=== PATIENT | female | born 1950 | race Caucasian/White ===

== ENCOUNTER 2016-06-11 13:19 | Inpatient (IN) | payer MEDICARE, BC ==
--- NOTE | ~2016-06-11 | PUL ---
[facility] [address] [place]. [address] NAME: JESUS MARTE : 50 STATUS : DIS IN PAT#: [id number] AGE: 66 ADM/REG DATE : 06/11/16 MR#: [id number] REPORT SERV DATE: 06/17/16 DICTATED BY: NEGRA STARK DATE: 06/17/16 REPORT STATUS : Draft TRANSCRIBED BY: MODL DATE: 06/17/16 PULMONARY FUNCTION TEST OVERNIGHT OXIMETRY REPORT START DATE OF TESTING: END DATE OF TESTIN06/15/2016 COMMENTS: Testing conducted while the patient was breathing room air. RESULTS: Total valid sampling time 1600 hours 15 minutes and 53 seconds. Total time with an oxygen saturation less than 88%, 17 minutes and 2 seconds. Oxygen desaturation event index 8.2. IMPRESSION: There was significant desaturation during this study conducted while the patient was breathing room air. Additionally, the oxygen desaturation event index is suspicious for possible sleep apnea. Recommend supplemental oxygen at a minimum flow rate of 2 L/minute with sleep and a formal sleep study is clinically indicated. PS/HUMBLE Negra Stark M.D. / [id number] CC: Vannessa Pelletier REBECCA ANN
--- NOTE | ~2016-06-11 | DS ---
Discharge Summary [facility] [address] [place]. [address] NAME: JESUS MARTE : 50 STATUS : DIS IN PAT#: [id number] AGE: 66 ADM/REG DATE : 06/11/16 MR#: [id number] REPORT SERV DATE: 06/17/16 DICTATED BY: JASVIR RUBIN DATE: 06/17/16 REPORT STATUS : Draft TRANSCRIBED BY: HUMBLE DATE: 06/17/16 ADMISSION DATE: 06/11/2016 DISCHARGE DATE: 06/17/2016 History of present illness per dictation of Dr. Bennett on 06/11/2016. Also please refer to the dictation of critical care physician Dr. Callaway on 06/11/2016. Please also refer to interim discharge summary dictated by Dr. Raji Yeung on 06/14/2016. I personally started to see this patient on 06/15/2016 when she was transferred from the intensive care unit to the floor. DIAGNOSES ON DISCHARGE: 1. Hypotension present on admission, resolved with IV fluid hydration and short term Levophed. 2. Clinical adrenal insufficiency, currently resolved once her prednisone was restarted. 3. Ulcerative colitis with predominantly proctitis pattern. 4. Hypercholesterolemia, stable. 5. Over replaced hypothyroidism, levothyroxine dose decreased to 75 mcg a day. 6. Hypokalemia, corrected and replaced. 7. Antibiotic associated diarrhea, resolved after antibiotic course completed. 8. History of obstructive sleep apnea, may need outpatient sleep study. Attending seeing this patient during hospitalization, Dr. Bennett; critical care attendings, Dr. Callaway and Dr. Yeung as well as consultants range ecologist, Dr. Yi Celis. HOSPITAL COURSE: Briefly, for the hospital course before 06/15/2016, please refer to interim discharge summary dictated by Dr. Yeung. For the last three days that I saw the patient starting 06/15/2016, she was doing very well on the floor. I tapered her intravenous hydrocortisone and she was started on oral prednisone. She is doing well and her blood pressure was very stable in the normal range. I checked also her blood pressure on standing and it was 120/68, 131/72. She does not have any dizziness. Her diarrhea resolved. She recommended a slow tapering course of prednisone per Dr. Celis. She does not need antibiotics anymore since she completed seven days of Levaquin and Flagyl per recommendation of Dr. Celis. She was recommended to be discharged today and follow up with range ecologist, Dr. Celis in one week. Over replaced hypothyroidism. We recommended to decrease her Synthroid dose to 75 mcg a day and check her TSH in four weeks per her primary care physician, Veronica Farris. The patient doing very well. The patient was discharged in a stable condition. DISCHARGE MEDICATIONS: Lipitor 40 mg daily, Imuran 100 mg daily, ranitidine 30 mg daily, levothyroxine dose decreased to 75 mcg daily, prescription given. Check TSH in four weeks per Dr. Farris. The patient to stop lisinopril and hydrochlorothiazide since she does not Discharge Summary [address] [address] NAME: JESUS MARTE : 50 STATUS : DIS IN PAT#: [id number] AGE: 66 ADM/REG DATE : 06/11/16 MR#: [id number] REPORT SERV DATE: 06/17/16 DICTATED BY: JASVIR RUBIN DATE: 06/17/16 REPORT STATUS : Draft TRANSCRIBED BY: HUMBLE DATE: 06/17/16 need this medicine, now her blood pressure currently in normal range. She can restart it if systolic blood pressure more than 140. Continue balsalazide at a dose of 2250 mg p.o. three times a day, vitamin E 400 units daily, vitamin D3 daily, vitamin B12 of 2500 mcg sublingually, prednisone slow tapering course, prednisone 40 mg daily for one week, then 35 mg p.o. daily for one week, then 30 mg p.o. daily for one week, then 25 mg p.o. daily for one week, then 20 mg p.o. daily for one week, then 15 mg p.o. daily for one week, then 10 mg p.o. daily for one week, and then 5 mg p.o. daily for one week. Prescription given to the patient and then she needs to stop after she will complete five week course of prednisone. It was explained that she should not stop her prednisone abruptly. She have to complete five days tapering course to avoid hypotension. I spent 45 minutes on discharge. The patient was discharged in stable condition. MG/MODL Jasvir Rubin M.D. / [id number] CC: Vannessa Pelletier Rebecca Ann Camille Sommer, MD
--- NOTE | ~2016-06-11 | HP ---
History And Physical [place] [address] [place]. [address] NAME: JESUS MARTE : 50 STATUS : ADM IN [facility]#: [id number] AGE: 66 ADM/REG DATE : 06/11/16 MR#: [id number] REPORT SERV DATE: 06/12/16 DICTATED BY: MISTY BUCK DATE: 06/12/16 REPORT STATUS : Draft TRANSCRIBED BY: MODMatt DATE: 06/12/16 DATE OF ADMISSION: 06/11/2016 TIME: 0336 hours. Ms. Wallace has arrived from the ER, where she spent the last eight to nine hours. HISTORY OF PRESENT ILLNESS: She is a 66-year-old white female with a history of ulcerative colitis of one year's duration, diagnosed by colonoscopy by a GI physician at [place]. She presents tonight into the ER today with a history of being very weak for several weeks to the point where she felt she could not stand up without getting dizzy. On entry to the ER on examination, she is found to be somewhat hypotensive and thought to be dehydrated. She was given 2 to 3 L of saline with some improvement but required Levophed for maintenance of blood pressure. According to the patient, she had been on a prednisone taper for about a month. Tapering down stopped several weeks ago. Since that time, she has felt extremely weak. She denies having any significant diarrhea, nausea, or vomiting. No increased diuresis. PAST MEDICAL HISTORY: Significant for the onset of the colitis. She has a history of thyroid disease. She has been taking immunosuppressants for her colitis, Imuran and prednisone. She does not smoke or drink, and she does have a history of hypertension, for which she takes medications. FAMILY HISTORY: Negative for any colon problems in the family. She lives with her significant other. She has a sister. No children. Not . ALLERGIES: NO KNOWN DRUG ALLERGIES. MEDICATIONS: Home medications include Synthroid 100 mcg p.o. daily, Imuran 50 mg tablet 100 mg once a day, Zantac 300 mg p.o. at bedtime, Lipitor 40 daily, balsalazide 2250 mg p.o. three times a day, vitamin E, vitamin D3, and vitamin B12. REVIEW OF SYSTEMS: Otherwise negative and noncontributory. PHYSICAL EXAMINATION: GENERAL: The patient is awake, alert, and oriented at this time, VITAL SIGNS: Blood pressure was 117/59, on Levophed; pulse 96; sat 98%; afebrile. HEENT: Head is normocephalic. Sclerae and conjunctivae clear. NECK: Supple. Good upstroke. No bruits. CHEST: Clear to auscultation and percussion. No wheezing or rhonchi. CARDIAC: S1 and S2. No murmurs or gallops. ABDOMEN: Scaphoid, nontender. No masses or organomegaly. EXTREMITIES: No clubbing, cyanosis, or edema. Pulses palpable. NEUROLOGIC: Cranial nerves II through XII are intact. Deep tendon reflexes normal. Strength now appears to be relatively normal. No evidence of arthritis. History And Physical [address] [address] NAME: JESUS MARTE : 50 STATUS : ADM IN [facility]#: [id number] AGE: 66 ADM/REG DATE : 06/11/16 MR#: [id number] REPORT SERV DATE: 06/12/16 DICTATED BY: MISTY BUCK DATE: 06/12/16 REPORT STATUS : Draft TRANSCRIBED BY: HUMBLE DATE: 06/12/16 LABORATORY DATA: Shows the following: Her CMP done on entry to the ER at 12 o'clock noon time, procalcitonin was 1.07, sodium 136, potassium 3.3, chloride 96, CO2 of 30, BUN 26, creatinine 1.84, glucose 168. Calcium 8.3, total protein 6.7, albumin 2.9, globulin 3.8, total bilirubin 0.6, alkaline phosphatase 61, ALT 10, AST 12. Lipase 66. Troponin less than 0.02. CBC showed an H and H of 10.3 and 30.6, white count 6700, platelet count 316,000. Serum lactate 1.9. Again, this is at noon time at 3:20. Urinalysis was basically negative. The patient was placed on antibiotics. She was started Levaquin 750 IV q.48, Flagyl 500 mg IV q.8 hours. IMPRESSION: 1. Weakness and hypotension, probably related to both relative adrenal insufficiency and dehydration. 2. Mild acute kidney injury. 3. Elevated procalcitonin, etiology unclear. PLAN: We will continue antibiotic therapy. Continue IV fluid therapy. Switch to normal saline. Repeat procalcitonin level. Consider use of Solu-Cortef if hypotension persists or difficulty getting off Levophed. The CT scan results that were done showed that gallstone could not be evaluated due to helical contrast. Findings were nonspecific ileus without definitive evidence for bowel obstruction. There was mild thickening of distal rectal wall with fluid in the distal sigmoid, associated nonspecific inflammatory infectious colitis not completely excluded. No findings to suggest acute appendicitis. The lung bases with mild patchy area of segmental atelectatic changes in both lower lobes. Pancreas unremarkable. Spleen unremarkable. Adrenals unremarkable. Kidneys and ureters were unremarkable. Bladder unremarkable as was the reproductive system. We will trend along with the antibiotics. We will check stools for C. diff, and we will also consult GI. MAGALI/HUMBLE Misty Buck M.D. / [id number]
--- NOTE | ~2016-06-11 | HP ---
History And Physical [place] [id number] [facility] [place]. [address] NAME: JESUS MARTE : 50 STATUS : ADM IN PAT#: [id number] AGE: 66 ADM/REG DATE : 06/11/16 MR#: [id number] REPORT SERV DATE: 06/11/16 DICTATED BY: BRADLEY FARIAS DATE: 06/11/16 REPORT STATUS : Draft TRANSCRIBED BY: MODL DATE: 06/11/16 DATE OF ADMISSION: 06/11/2016 HISTORY OF PRESENT ILLNESS: Ms Marte is a 66-year-old female patient with a history of ulcerative colitis for which she follows up with Dr. Vasquez, who is the [facility] doctor. The patient essentially came in today to the ER because she was feeling extremely weak and could hardly stand for the last three to five days. The patient states that she has actually been feeling weak for the last several weeks, but in the last three to five days, she was so weak that she was hardly able to stand and she decided to come into the ER. The patient states that she has chronically loose bowel movements and has about three to four of them every day for the last several months. Other than that, the patient did not experience any episode of acute watery diarrhea or did not experience any bleeding in stool. The patient did have an episode of nausea and vomiting yesterday, but that was just one time. Surprisingly, she denies any abdominal pain. She denies any headaches, blurry vision, fever, chest pain, or cough. She denies any abdominal pain or any further episodes of nausea or vomiting. She denies any blood in stool currently. She denies any dysuria or hematuria. There are no joint pains. REVIEW OF SYSTEMS: Other than above, negative for all systems. Essentially, she just came in for extreme weakness, which was so severe that she could hardly stand. PAST MEDICAL HISTORY: Significant for hypertension and severe ulcerative colitis for which she follows up with her GI doctor at [facility]. The patient states that she has been on medications for ulcerative colitis and this includes an immunosuppressant medicine, Imuran. SOCIAL HISTORY: The patient does not smoke or drink or do any illicit drugs. The patient states that she is not currently and she does not have any children. She lives with a significant other. Her sister who is at bedside lives close by. FAMILY HISTORY: Negative for any colon problems in the family. MEDICATIONS AND ALLERGIES: Medications and allergies at home include the following: Allergies: There are no known drug allergies. Home medications include Prinzide 10/12.5 mg one tablet once a day, Synthroid 100 mcg once a day, Imuran 50 mg tablet 100 mg once a day, Zantac 300 mg p.o. q.h.s., Lipitor 40 mg p.o. daily, balsalazide 2250 mg p.o. three times a day, vitamin E, vitamin D3, and also vitamin B12. PHYSICAL EXAMINATION: GENERAL: On examination, the patient is alert, oriented, appears very weak, but is able to answer all her questions herself. When I spoke with the ER physician, he told me that when she came in, her blood pressure was extremely low in the 70s/40s. She was given 2 liters of normal saline, but despite that her History And Physical [address] [address] NAME: JESUS MARTE : 50 STATUS : ADM IN [facility]#: [id number] AGE: 66 ADM/REG DATE : 06/11/16 MR#: [id number] REPORT SERV DATE: 06/11/16 DICTATED BY: BRADLEY FARIAS DATE: 06/11/16 REPORT STATUS : Draft TRANSCRIBED BY: HUMBLE DATE: 06/11/16 blood pressure stayed low in the 80s/40s. At that point, the ER physician, Dr. Bernstein, contacted Dr. Dailey, the ICU physician, and the advice of Dr. Dailey was for the patient to be given more fluids, but however, get a PICC line in case she would need Levophed for blood pressure support. Hence, the patient also now has a PICC line in place. But luckily, she did not need any Levophed and just with fluids and also more than fluids, with just one dose of Solu-Cortef that the patient received in the ER, her blood pressures come back up in the low 100s/60s. However, the patient is tachycardic with her heart rate anywhere between 110 to 120 per minute. As mentioned above, she appears weak and dehydrated, and however, is oriented and able to answer all questions herself. VITAL SIGNS: At this time when I examined the patient shows a blood pressure of 110/66. The patient is afebrile. Pulse is anywhere from 110 to 115 per minute and O2 sats 95% on 2 liters of oxygen per nasal cannula. The patient is afebrile. HEENT: Unremarkable. Skin and mucous membranes appear dehydrated. NECK: There is no JVD. There is no thyromegaly. CARDIOVASCULAR SYSTEM: S1 and S2 appreciated. Tachycardia noted. No murmurs, rubs, or gallops noted. RESPIRATORY SYSTEM: Clear lungs. No rales or rhonchi noted. ABDOMEN: Soft and completely nontender. No guarding. No rigidity. Bowel sounds appreciated. No organomegaly noted. EXTREMITIES: There is no pedal edema. Pedal pulses are well felt. NEUROLOGICAL: Normal. MUSCULOSKELETAL: Normal. PSYCHIATRIC: Normal. LABORATORY DATA: Labs show a CBC count that shows WBC of 6.7, hemoglobin 10.3, hematocrit of 30.6, and platelet count of 316. Her comprehensive metabolic profile shows sodium 136, potassium 3.3, BUN 26, and creatinine 1.8. LFTs are essentially normal. Lipase is low at 66. Troponin I is normal. Procalcitonin is elevated at 1.07. Lactate level, however, is 1.9. Urinalysis shows hazy urine, moderate amount of leukocyte esterase, and few bacteria. ASSESSMENT: My assessment on this patient is: 1. Hypotension - blood pressure is still somewhat on the lower side despite 2 liters of fluids and Solu-Cortef. Hence, start the patient on continuous IV Ringer's lactate at 125 mL an hour for 24 more hours still the patient is assessed by the oncoming physician. 2. The patient, however, has a PICC line and is at a low threshold for starting Levophed if needed. 3. Sepsis - at this time, the likely source is the colon. I do not have a CT scan report of the abdomen at this time on this patient, hence, we will order CT scan of the abdomen and pelvis to evaluate for acute infectious/other forms of colitis. We will start empirically on IV Levaquin and Flagyl on this patient. 4. Acute kidney injury with a creatinine of 1.8, this is probably from dehydration, hence, History And Physical [address] [place]. [address] NAME: JESUS MARTE : 50 STATUS : ADM IN PAT#: [id number] AGE: 66 ADM/REG DATE : 06/11/16 MR#: [id number] REPORT SERV DATE: 06/11/16 DICTATED BY: BRADLEY FARIAS DATE: 06/11/16 REPORT STATUS : Draft TRANSCRIBED BY: MODMatt DATE: 06/11/16 we will monitor kidney function after giving her Ringer lactate. However, we will hold her blood pressure medicine and Lipitor that she takes at home. 5. Chronic immunosuppressed status as she is on immunosuppressant medications for her ulcerative colitis - we will hold all these medications for at least 24 to 48 more hours until she is assessed by our GI specialist here. So, we will get a GI consult for the patient to be seen in a.m. 6. We will send off for stool studies and these will include stool for Clostridium difficile, stool ova and parasites, stool culture and also stool for Hemoccult. 7. Like I mentioned above, all her home medications will be held at least for 24 to 48 more hours for now until we have more information about her condition and until we are able to jean in more definitive diagnosis on this patient. For now, we will admit this patient to IM as her condition is guarded. JACKLYNA/HUMBLE Bradley Farias M.D. / [id number] CC: Vannessa Ball REBECCA ANN
--- NOTE | ~2016-06-11 | IDS ---
Interim Discharge Summary [facility] [address] [place]. [address] NAME: JESUS MARTE : 50 STATUS : ADM IN PAT#: [id number] AGE: 66 ADM/REG DATE : 06/11/16 MR#: [id number] REPORT SERV DATE: 06/14/16 DICTATED BY: MARY BETH YEUNG IV DATE: 06/14/16 REPORT STATUS : Draft TRANSCRIBED BY: MODMatt DATE: 06/14/16 ADMISSION DATE: 06/11/2016 DISCHARGE DATE: DATE OF TRANSFER: To the floor is 06/14/2016. ADMITTING DIAGNOSES: 1. Hypotension transiently requiring Levophed. 2. Clinical adrenal insufficiency. 3. Ulcerative colitis with predominantly proctitis. 4. Elevated cholesterol. 5. Hypothyroidism, over replaced. 6. Electrolyte abnormalities being corrected. 7. Clinical obstructive sleep apnea. 8. Outpatient hypertension. CONSULTANTS: Dr. Celis of Gastroenterology who continued to follow the patient. PROCEDURES: The patient had a PICC line placed and had an echocardiogram demonstrating normal left ventricular function with no valvular abnormalities. Abdominal CT scan demonstrating some fixation of the rectum consistent with proctitis noted on abdominal CT scan and that was performed on the . MEDICATIONS: Colazal 2250 mg three times a day, Flagyl 500 mg q.8 hours, heparin 5000 units q.12 hours, Levaquin 750 mg daily, Lipitor 40 mg daily, Pepcid 20 mg twice a day, Solu- Cortef 50 mg three times a day, Synthroid 75 mcg daily, multivitamin daily, thiamine 100 mg daily, and melatonin 3 mg at nighttime. HOSPITAL COURSE: The patient was admitted by the Hospitalist Service on 06/11/2016. Because of hypotension despite fluids, the patient was referred to the Critical Care Service and admitted to CCU. The patient required Levophed at low doses to maintain a mean arterial pressure greater than 65. The patient had been on a five-week course of steroids, which was discontinued at 10 mg. The cortisol level was 13, however, when the patient was placed on hydrocortisone 75 mg three times a day, the patient had improvement of her blood pressure and allowed discontinuation of Levophed within hours. The patient had a suppressed TSH and an elevated free T4 for which her Synthroid dose was decreased from 100 mcg to 75 mcg and will need to have a repeat level obtained in four weeks. She had electrolyte abnormalities, which have been corrected and will be repeated again tomorrow. The patient has nocturnal hypoxemia with symptoms consistent with obstructive sleep apnea to include snoring, awakening herself gasping for air, nonrestorative sleep, and sedentary hypersomnolence for which she should have an outpatient sleep evaluation. An overnight oximetry will be obtained while she is in the hospital. The patient had abdominal CT scan demonstrating the proctitis for which she is on Flagyl and Levaquin with a drop in the procalcitonin level. This is going to be continued for now. Interim Discharge Summary [place] [id number] [facility] [place]. [address] NAME: JESUS MARTE : 50 STATUS : ADM IN [facility]#: [id number] AGE: 66 ADM/REG DATE : 06/11/16 MR#: [id number] REPORT SERV DATE: 06/14/16 DICTATED BY: MARY BETH YEUNG IV DATE: 06/14/16 REPORT STATUS : Draft TRANSCRIBED BY: HUMBLE DATE: 06/14/16 The patient was re-initiated on some of her ulcerative colitis medications with further recommendations per Dr. Celis. It was felt that she was stable for transfer to the floor and back to the Hospitalist Service. LOTUS/HUMBLE Mary Beth Yeung IV, M.D. / [id number] CC: Cristine Monte M.D.
--- NOTE | ~2016-06-11 | CN ---
Consultation Report [facility] [address] [place]. [address] NAME: JESUS MARTE : 50 STATUS : ADM IN PAT#: [id number] AGE: 66 ADM/REG DATE : 06/11/16 MR#: [id number] REPORT SERV DATE: 06/13/16 DICTATED BY: RICK CELIS DATE: 06/13/16 REPORT STATUS : Draft TRANSCRIBED BY: MODL DATE: 06/13/16 GI CONSULTATION DATE OF CONSULTATION: 06/12/2016 REASON FOR CONSULTATION: Ulcerative colitis. HISTORY OF PRESENT ILLNESS: Ms. Marte is a 66-year-old, white female, who follows with Dr. Woodruff for presumed ulcerative colitis. She believes that it is distal/proctitis. She reports that she has had difficulty getting into remission and has tried numerous 5-ASA formulations and was recently started on Imuran 100 mg daily a month ago. She has also recently been on balsalazide and completed her steroid taper this past Saturday. Regarding her steroid taper, she believes that her schedule was four 5 mg tablets daily for two weeks, three 15 mg daily for one week, 10 mg daily for one week, and then 5 mg daily for the following week, the last week. Again, this was completed [address] scan performed here showed some mild thickening in the distal rectum with some fluid of unclear significance. No obstruction was seen. She also had a gallstone and nonspecific ileus. No significant bowel wall thickening or stranding elsewhere. No evidence of acute pancreatitis. Pancreas and spleen appeared normal. No ESR, CRP had been performed. She did test negative for C. diff and was started on Levaquin and Flagyl for presumed flare and possible UTI. PAST MEDICAL HISTORY: Ulcerative colitis. FAMILY HISTORY: Noncontributory. SOCIAL HISTORY: No smoking, alcohol, or drug use. ALLERGIES: NO KNOWN DRUG ALLERGIES. MEDICATIONS: Reviewed. PHYSICAL EXAMINATION: Patient is afebrile. Vital signs, reviewed. She has been hypotensive and has been on Levophed to maintain her blood pressure. However, her dizziness and fatigue have improved since her hospitalization. Because she was on Levophed, she has been required to stay in the CCU for pressor support. No other hemodynamic instability, however. HEENT: Atraumatic, normocephalic. Anicteric. Mucous membranes moist. CARDIAC: S1, S2. CHEST: Clear to auscultation. ABDOMEN: Soft. Minimal tenderness to suprapubic area but no rebound or guarding. Bowel sounds are normoactive. LABORATORY DATA: WBC 5.6, hemoglobin 8.5, hematocrit 25.1, platelets 268. Sodium 142, Consultation Report [facility] [address] [place]. [address] NAME: JESUS MARTE : 50 STATUS : ADM IN PAT#: [id number] AGE: 66 ADM/REG DATE : 06/11/16 MR#: [id number] REPORT SERV DATE: 06/13/16 DICTATED BY: RICK CELIS DATE: 06/13/16 REPORT STATUS : Draft TRANSCRIBED BY: HUMBLE DATE: 06/13/16 potassium 3.2, chloride 105, bicarb 28, BUN 18, creatinine 0.7, glucose 132. Liver enzymes normal. ESR, CRP pending. IMPRESSION AND PLAN: Ulcerative colitis, unclear if currently having a flare up. She has had chronic diarrhea consisting of three to four soft bowel movements daily over the past several months but has recently seen Dr. Edwards for this and has just completed a steroid taper. She denies any bleeding. No abdominal pain. No nausea or vomiting. She may have this persistent hypotension due to her steroid taper. We will check a cortisol level in the morning. I will also check an ESR, CRP, and faecal calprotectin to further evaluate any active inflammation. Continue antibiotics. We will continue to follow with you. LAURA/HUMBLE Rick Celis MD / [id number] CC: Vannessa Ball
[2016-06-11 12:51] LABS: BASOPHILS 0.1 %; BASOPHILS ABSOLUTE 0.01 10/3/uL (0.0-0.16); EOSINOPHILS 0.4 %; EOSINOPHILS ABSOLUTE 0.03 10/3/uL (0.0-0.53); IMMATURE GRANULOCYTES 0.7 %; IMMATURE GRANULOCYTES ABSOLUTE 0.05 10/3/uL (0.0-0.11); LYMPHOCYTES 13.2 %; LYMPHOCYTES ABSOLUTE 0.89 10/3/uL (0.67-4.30); MEAN CORPUS HGB CONC 33.7 g/dL (32.0-36.0); MEAN CORPUSCULAR HEMOGLOB 29.6 pg (26.0-34.0); MEAN PLATELET VOLUME 9.3 fL (9.2-13.0); MONOCYTES 8.5 %; MONOCYTES ABSOLUTE 0.57 10/3/uL (0.21-1.20); NEUTROPHILS 77.1 %; NEUTROPHILS ABSOLUTE 5.17 10/3/uL (2.02-8.40); RED CELL COUNT 3.48 10/6/uL (4.0-5.6)
[2016-06-11 12:52] LABS: ER CBC TAT 0 Hrs 05 Mins; HEMATOCRIT 30.6 % (36.0-48.0); HEMOGLOBIN 10.3 g/dL (12.0-16.0); MANUAL DIFF NO %; MEAN CORPUSCULAR VOLUME 87.9 fL (80-100); PLATELET COUNT 316 10/3/uL (150-400); RBC DISTRIBUTION WIDTH 19.8 % (12.0-16.0); WHITE BLOOD CELLS 6.7 10/3/uL (4.5-10.5)
[2016-06-11 13:06] LABS: A/G RATIO 0.8 (0.7-1.9); ALBUMIN 2.9 G/DL (3.5-5.0); ALKALINE PHOSPHATASE 61 U/L (45-117); CALCIUM, SERUM 8.3 MG/DL (8.5-10.4); CHLORIDE, SERUM 96 MMOL/L (96-112); CO2 (CARBON DIOXIDE) 30 MMOL/L (24-34); GLOBULIN 3.8 G/DL (2.5-4.1); POTASSIUM, SERUM 3.3 MMOL/L (3.5-5.3); SGOT(AST) 12 U/L (5-40); SGPT(ALT) 10 U/L (5-65); SODIUM, SERUM 136 MMOL/L (135-148); TOTAL BILIRUBIN 0.6 MG/DL (0-1.2); TOTAL PROTEIN 6.7 G/DL (6.0-8.5); TROPONIN I <0.02 NG/ML (<0.05)
[2016-06-11 13:07] LABS: BUN (BLOOD UREA NITROGEN) 26 MG/DL (6-23); CREATININE 1.84 MG/DL (0.55-1.02); GFR AFRICAN AMERICAN 33 ML/MIN (>=60); GFR NON AFRICAN AMERICAN 28 ML/MIN (>=60); GLUCOSE, SERUM 168 MG/DL (60-99)
[2016-06-11 13:08] LABS: LACTATE 1.9 MMOL/L (0.3-2.4)
[2016-06-11] MEDS ORDERED: PRINZIDE1 TAB PO (13:53)
[2016-06-11] MEDS ORDERED: SYN075 PO (13:53)
[2016-06-11] MEDS ORDERED: LIPITOR40 PO (13:54)
[2016-06-11] MEDS ORDERED: IMU PO (13:54)
[2016-06-11] MEDS ORDERED: ZANTAC300 MG PO (13:54)
[2016-06-11] MEDS ORDERED: BALSALAZIDE750 MG PO (13:55)
[2016-06-11] MEDS ORDERED: VITE PO (13:56)
[2016-06-11] MEDS ORDERED: VITAMIN D3 PO (13:57)
[2016-06-11] MEDS ORDERED: VITAMIN B-122500 MCG SL (13:58)
[2016-06-11 15:35] LABS: PROCALCITONIN 1.07 ng/mL (<0.5)
[2016-06-11 15:47] LABS: ASCORBIC ACID (UR NOT ORDER) NEG (NEG); BILIRUBIN, URINE NEGATIVE (NEG); KETONE, URINE NEGATIVE (NEG); LEUKOCYTE ESTERASE(NOT OR MOD (NEG); NITRITE (URINE) NEG (NEG); WBC (NOT ORDERED) (RFLEX) 3 (0-5)
[2016-06-11 22:17] LABS: ASCORBIC ACID (UR NOT ORDER) NEG (NEG); BILIRUBIN, URINE NEGATIVE (NEG); ER URINALYSIS TAT 0 Hrs 10 Mins; KETONE, URINE NEGATIVE (NEG); LEUKOCYTE ESTERASE(NOT OR NEG (NEG); NITRITE (URINE) NEG (NEG); WBC (NOT ORDERED) (RFLEX) 2 (0-5)
[2016-06-12 04:59] LABS: BASOPHILS 0 %; EOSINOPHILS 0 %; ER CBC TAT 0 Hrs 08 Mins; HEMOGLOBIN 8.5 g/dL (12.0-16.0); IMMATURE GRANULOCYTES 0.5 %; IMMATURE GRANULOCYTES ABSOLUTE 0.03 10/3/uL (0.0-0.11); LYMPHOCYTES 11.3 %; LYMPHOCYTES ABSOLUTE 0.63 10/3/uL (0.67-4.30); MEAN CORPUS HGB CONC 33.9 g/dL (32.0-36.0); MEAN CORPUSCULAR HEMOGLOB 29.7 pg (26.0-34.0); MEAN CORPUSCULAR VOLUME 87.8 fL (80-100); MEAN PLATELET VOLUME 9.2 fL (9.2-13.0); MONOCYTES ABSOLUTE 0.28 10/3/uL (0.21-1.20); NEUTROPHILS 83.2 %; NEUTROPHILS ABSOLUTE 4.65 10/3/uL (2.02-8.40); PLATELET COUNT 268 10/3/uL (150-400); RBC DISTRIBUTION WIDTH 19.4 % (12.0-16.0); RED CELL COUNT 2.86 10/6/uL (4.0-5.6); WHITE BLOOD CELLS 5.6 10/3/uL (4.5-10.5)
[2016-06-12 05:09] LABS: HEMATOCRIT 25.1 % (36.0-48.0); MANUAL DIFF NO %
[2016-06-12 05:12] LABS: CHLORIDE, SERUM 105 MMOL/L (96-112); CO2 (CARBON DIOXIDE) 28 MMOL/L (24-34); POTASSIUM, SERUM 3.2 MMOL/L (3.5-5.3); SODIUM, SERUM 142 MMOL/L (135-148)
[2016-06-12 05:13] LABS: BUN (BLOOD UREA NITROGEN) 18 MG/DL (6-23); CALCIUM, SERUM 7.3 MG/DL (8.5-10.4); GFR AFRICAN AMERICAN 105 ML/MIN (>=60); GFR NON AFRICAN AMERICAN 90 ML/MIN (>=60); GLUCOSE, SERUM 133 MG/DL (60-99)
[2016-06-12 05:53] LABS: PROCALCITONIN 0.25 ng/mL (<0.5)
[2016-06-12 10:08] LABS: FREE T4 1.82 NG/DL (0.76-1.46); ULTRASENSITIVE TSH 0.025 MCIU/ML (0.358-3.740)
[2016-06-13 04:59] LABS: BASOPHILS 0.3 %; BASOPHILS ABSOLUTE 0.01 10/3/uL (0.0-0.16); EOSINOPHILS 1.8 %; EOSINOPHILS ABSOLUTE 0.06 10/3/uL (0.0-0.53); HEMATOCRIT 24.9 % (36.0-48.0); HEMOGLOBIN 8.1 g/dL (12.0-16.0); IMMATURE GRANULOCYTES 0.6 %; IMMATURE GRANULOCYTES ABSOLUTE 0.02 10/3/uL (0.0-0.11); LYMPHOCYTES 31.6 %; LYMPHOCYTES ABSOLUTE 1.08 10/3/uL (0.67-4.30); MANUAL DIFF NO %; MEAN CORPUS HGB CONC 32.5 g/dL (32.0-36.0); MEAN CORPUSCULAR HEMOGLOB 29.1 pg (26.0-34.0); MEAN CORPUSCULAR VOLUME 89.6 fL (80-100); MEAN PLATELET VOLUME 9.3 fL (9.2-13.0); MONOCYTES 7.9 %; MONOCYTES ABSOLUTE 0.27 10/3/uL (0.21-1.20); NEUTROPHILS 57.8 %; NEUTROPHILS ABSOLUTE 1.98 10/3/uL (2.02-8.40); PLATELET COUNT 221 10/3/uL (150-400); RBC DISTRIBUTION WIDTH 19.6 % (12.0-16.0); RED CELL COUNT 2.78 10/6/uL (4.0-5.6); WHITE BLOOD CELLS 3.4 10/3/uL (4.5-10.5)
[2016-06-13 05:30] LABS: C-REACTIVE PROTEIN ULTRAQUANT 45.7 MG/L (<3.0); CALCIUM, SERUM 7.6 MG/DL (8.5-10.4); CHLORIDE, SERUM 111 MMOL/L (96-112); CO2 (CARBON DIOXIDE) 27 MMOL/L (24-34); CREATININE 0.51 MG/DL (0.55-1.02); GFR AFRICAN AMERICAN 116 ML/MIN (>=60); GFR NON AFRICAN AMERICAN 100 ML/MIN (>=60); GLUCOSE, SERUM 107 MG/DL (60-99); PHOSPHORUS, SERUM 1.9 MG/DL (2.5-4.5); SODIUM, SERUM 146 MMOL/L (135-148)
[2016-06-13 05:36] LABS: BUN (BLOOD UREA NITROGEN) 7 MG/DL (6-23); POTASSIUM, SERUM 3.9 MMOL/L (3.5-5.3)
[2016-06-13 05:37] LABS: SED RATE 43 MM/HR (0-20)
[2016-06-14 04:07] LABS: BASOPHILS 0 %; EOSINOPHILS 0 %; HEMATOCRIT 25.1 % (36.0-48.0); HEMOGLOBIN 8.3 g/dL (12.0-16.0); IMMATURE GRANULOCYTES 0.6 %; IMMATURE GRANULOCYTES ABSOLUTE 0.02 10/3/uL (0.0-0.11); LYMPHOCYTES 18.2 %; LYMPHOCYTES ABSOLUTE 0.57 10/3/uL (0.67-4.30); MEAN CORPUS HGB CONC 33.1 g/dL (32.0-36.0); MEAN CORPUSCULAR HEMOGLOB 29.7 pg (26.0-34.0); MEAN PLATELET VOLUME 9.6 fL (9.2-13.0); MONOCYTES 5.1 %; MONOCYTES ABSOLUTE 0.16 10/3/uL (0.21-1.20); NEUTROPHILS 76.1 %; NEUTROPHILS ABSOLUTE 2.39 10/3/uL (2.02-8.40); PLATELET COUNT 233 10/3/uL (150-400); RBC DISTRIBUTION WIDTH 19.8 % (12.0-16.0); RED CELL COUNT 2.79 10/6/uL (4.0-5.6); WHITE BLOOD CELLS 3.1 10/3/uL (4.5-10.5)
[2016-06-14 04:08] LABS: MANUAL DIFF NO %
[2016-06-14 04:22] LABS: BUN (BLOOD UREA NITROGEN) 10 MG/DL (6-23); CALCIUM, SERUM 7.9 MG/DL (8.5-10.4); CHLORIDE, SERUM 109 MMOL/L (96-112); CO2 (CARBON DIOXIDE) 29 MMOL/L (24-34); CREATININE 0.52 MG/DL (0.55-1.02); GFR AFRICAN AMERICAN 115 ML/MIN (>=60); GFR NON AFRICAN AMERICAN 100 ML/MIN (>=60); POTASSIUM, SERUM 3.4 MMOL/L (3.5-5.3); SODIUM, SERUM 144 MMOL/L (135-148)
[2016-06-14 04:24] LABS: ALBUMIN 2.1 G/DL (3.5-5.0); GLUCOSE, SERUM 135 MG/DL (60-99); PHOSPHORUS, SERUM 2.8 MG/DL (2.5-4.5)
[2016-06-15 04:51] LABS: BASOPHILS 0 %; EOSINOPHILS 0 %; HEMATOCRIT 23.9 % (36.0-48.0); IMMATURE GRANULOCYTES 0.5 %; IMMATURE GRANULOCYTES ABSOLUTE 0.02 10/3/uL (0.0-0.11); LYMPHOCYTES 15.9 %; LYMPHOCYTES ABSOLUTE 0.67 10/3/uL (0.67-4.30); MEAN CORPUS HGB CONC 33.5 g/dL (32.0-36.0); MEAN CORPUSCULAR HEMOGLOB 30.3 pg (26.0-34.0); MEAN CORPUSCULAR VOLUME 90.5 fL (80-100); MEAN PLATELET VOLUME 9.5 fL (9.2-13.0); MONOCYTES 5.5 %; MONOCYTES ABSOLUTE 0.23 10/3/uL (0.21-1.20); NEUTROPHILS 78.1 %; NEUTROPHILS ABSOLUTE 3.29 10/3/uL (2.02-8.40); PLATELET COUNT 241 10/3/uL (150-400); RBC DISTRIBUTION WIDTH 20.3 % (12.0-16.0); RED CELL COUNT 2.64 10/6/uL (4.0-5.6); WHITE BLOOD CELLS 4.2 10/3/uL (4.5-10.5)
[2016-06-15 04:54] LABS: MANUAL DIFF NO %
[2016-06-15 05:10] LABS: BUN (BLOOD UREA NITROGEN) 10 MG/DL (6-23); CALCIUM, SERUM 7.9 MG/DL (8.5-10.4); CHLORIDE, SERUM 112 MMOL/L (96-112); CO2 (CARBON DIOXIDE) 29 MMOL/L (24-34); CREATININE 0.55 MG/DL (0.55-1.02); GFR AFRICAN AMERICAN 113 ML/MIN (>=60); GFR NON AFRICAN AMERICAN 98 ML/MIN (>=60); GLUCOSE, SERUM 139 MG/DL (60-99); PHOSPHORUS, SERUM 2.4 MG/DL (2.5-4.5); POTASSIUM, SERUM 3.4 MMOL/L (3.5-5.3); SODIUM, SERUM 149 MMOL/L (135-148)
[2016-06-16 07:06] LABS: BASOPHILS 0 %; EOSINOPHILS 0 %; HEMATOCRIT 23.9 % (36.0-48.0); IMMATURE GRANULOCYTES ABSOLUTE 0.04 10/3/uL (0.0-0.11); LYMPHOCYTES 27.8 %; LYMPHOCYTES ABSOLUTE 1.08 10/3/uL (0.67-4.30); MEAN CORPUS HGB CONC 33.5 g/dL (32.0-36.0); MEAN CORPUSCULAR HEMOGLOB 29.9 pg (26.0-34.0); MEAN CORPUSCULAR VOLUME 89.2 fL (80-100); MEAN PLATELET VOLUME 9.1 fL (9.2-13.0); MONOCYTES ABSOLUTE 0.35 10/3/uL (0.21-1.20); NEUTROPHILS 62.2 %; NEUTROPHILS ABSOLUTE 2.41 10/3/uL (2.02-8.40); PLATELET COUNT 245 10/3/uL (150-400); RBC DISTRIBUTION WIDTH 20.7 % (12.0-16.0); RED CELL COUNT 2.68 10/6/uL (4.0-5.6); WHITE BLOOD CELLS 3.9 10/3/uL (4.5-10.5)
[2016-06-16 07:08] LABS: MANUAL DIFF NO %
[2016-06-16 07:20] LABS: BUN (BLOOD UREA NITROGEN) 9 MG/DL (6-23); CALCIUM, SERUM 7.8 MG/DL (8.5-10.4); CHLORIDE, SERUM 108 MMOL/L (96-112); CO2 (CARBON DIOXIDE) 31 MMOL/L (24-34); CREATININE 0.57 MG/DL (0.55-1.02); GFR AFRICAN AMERICAN 112 ML/MIN (>=60); GFR NON AFRICAN AMERICAN 97 ML/MIN (>=60); GLUCOSE, SERUM 114 MG/DL (60-99); SODIUM, SERUM 149 MMOL/L (135-148)
[2016-06-16 07:21] LABS: POTASSIUM, SERUM 2.7 MMOL/L (3.5-5.3)
[2016-06-17 07:06] LABS: BASOPHILS 0 %; EOSINOPHILS 1.1 %; EOSINOPHILS ABSOLUTE 0.04 10/3/uL (0.0-0.53); HEMATOCRIT 23.4 % (36.0-48.0); HEMOGLOBIN 7.7 g/dL (12.0-16.0); IMMATURE GRANULOCYTES 1.7 %; IMMATURE GRANULOCYTES ABSOLUTE 0.06 10/3/uL (0.0-0.11); LYMPHOCYTES 41.9 %; LYMPHOCYTES ABSOLUTE 1.48 10/3/uL (0.67-4.30); MEAN CORPUS HGB CONC 32.9 g/dL (32.0-36.0); MEAN CORPUSCULAR HEMOGLOB 29.8 pg (26.0-34.0); MEAN CORPUSCULAR VOLUME 90.7 fL (80-100); MONOCYTES 7.4 %; MONOCYTES ABSOLUTE 0.26 10/3/uL (0.21-1.20); NEUTROPHILS 47.9 %; NEUTROPHILS ABSOLUTE 1.69 10/3/uL (2.02-8.40); PLATELET COUNT 240 10/3/uL (150-400); RBC DISTRIBUTION WIDTH 21.3 % (12.0-16.0); RED CELL COUNT 2.58 10/6/uL (4.0-5.6); WHITE BLOOD CELLS 3.5 10/3/uL (4.5-10.5)
[2016-06-17 07:14] LABS: MANUAL DIFF NO %
[2016-06-17 07:19] LABS: BUN (BLOOD UREA NITROGEN) 10 MG/DL (6-23); CALCIUM, SERUM 7.7 MG/DL (8.5-10.4); CHLORIDE, SERUM 109 MMOL/L (96-112); CO2 (CARBON DIOXIDE) 31 MMOL/L (24-34); CREATININE 0.57 MG/DL (0.55-1.02); GFR AFRICAN AMERICAN 112 ML/MIN (>=60); GFR NON AFRICAN AMERICAN 97 ML/MIN (>=60); GLUCOSE, SERUM 94 MG/DL (60-99); SODIUM, SERUM 147 MMOL/L (135-148)
[2016-06-17 07:24] LABS: POTASSIUM, SERUM 3.4 MMOL/L (3.5-5.3)
[2016-06-17] MEDS ORDERED: P20 (09:16)
== END 2016-06-17 13:31 | disposition home or self-care (01) | DRG 386 ==
LOC: ER 13:19 → ER/OF 18:56 → CCU 06-12 02:18 → 5SO 06-14 21:30
PROVIDERS: Emergency Medicine; Hospitalist; Internal Medicine Critical Care Medicine
PROC: 05HM33Z Insertion of Infusion Device into Right Internal Jugular Vein, Percutaneous Approach (ICD-10-PCS; principal; 2016-06-11)
PROC: B5131ZA Fluoroscopy of Right Jugular Veins using Low Osmolar Contrast, Guidance (ICD-10-PCS; 2016-06-11)
DX: K51.90 Ulcerative colitis, unspecified, without complications (principal); E27.40 Unspecified adrenocortical insufficiency; N17.9 Acute kidney failure, unspecified; K52.1 Toxic gastroenteritis and colitis; I10 Essential (primary) hypertension; E86.0 Dehydration; Z79.899 Other long term (current) drug therapy; T36.95XA Adverse effect of unspecified systemic antibiotic, initial encounter; G47.33 Obstructive sleep apnea (adult) (pediatric); E03.9 Hypothyroidism, unspecified; E78.00 Pure hypercholesterolemia, unspecified; E87.6 Hypokalemia
CPT/HCPCS: 36569; 71010; 74176; 80048; 80053; 80069; 81001; 82533; 83605; 83690; 83735; 83993; 84100; 84145; 84439; 84443; 84484; 85025; 85652; 86141; 87040; 87077; 87086; 87186; 87493; 87493-59; 87641; 93005; 93306; 94762; 96361; 96365; 96375; 99285; A9270-GY; C1751; J1720; J1956; J2405; J7500